=== PATIENT | male | born 1985 | race Caucasian/White ===

== ENCOUNTER 2017-10-02 14:14 | Day surgery (SDC) | payer BC ==
[~2017-10-02 14:14] MED LIST: ROCURONIUM 50 MG INJ
[2017-10-02] MEDS ORDERED: BACITRACIN/POLYMYXIN 28.35 GM OINT TOP (17:15)
[2017-10-02] MEDS ORDERED: COCAINE 4% 4 ML TOP (17:15)
[2017-10-02] MEDS ORDERED: PROPOFOL 20 ML ×2 (17:57→18:56)
[2017-10-02] MEDS ORDERED: ONDANSETRON 4 MG INJ (17:57)
[2017-10-02] MEDS ORDERED: MIDAZOLAM 1 MG/ML 2 ML INJ (17:57)
[2017-10-02] MEDS ORDERED: METOCLOPRAMIDE 10 MG INJ (17:57)
[2017-10-02] MEDS ORDERED: CLINDAMYCIN 900 MG/D5W (PMX) 50 ML IVPB (18:06)
[2017-10-02] MEDS: LIDOCAINE 1%/EPI 30 ML INJ (18:32)
[2017-10-02] MEDS ORDERED: EPINEPHrine 0.1 MG/ML SYG (18:40)
[2017-10-02] MEDS ORDERED: EPINEPHrine 1 MG INJ (18:41)
[2017-10-02] MEDS ORDERED: EPINEPHrine 100 MCG/10 ML SYG IV (18:48)
[2017-10-02] MEDS ORDERED: OXYCODONE/ACETAMINOPHEN (5/325) TAB PO ×2 (19:00)
[2017-10-02] MEDS ORDERED: HYDROmorphONE (0.2 MG/ML) 10ML SYG IV ×2 (19:00)
[2017-10-02] MEDS ORDERED: FENTAnyl 50 MCG/ML VIAL (19:33)
[2017-10-02] MEDS ORDERED: DEXAMETHASONE 4 MG/ML 1 ML INJ (19:57)
[2017-10-02] MEDS ORDERED: HYDROCODONE/APAP (5/325) TAB PO (20:30)
[2017-10-02] MEDS: ONDANSETRON 4 MG INJ IV (20:30)
[2017-10-02] MEDS: HYDROmorphONE (0.2 MG/ML) 10ML SYG IV ×2 (20:30→20:59)
== END 2017-10-02 21:14 | disposition home or self-care (01) ==
LOC: SDS 14:14
DX: J34.3 Hypertrophy of nasal turbinates (principal); J34.89 Other specified disorders of nose and nasal sinuses; R09.81 Nasal congestion; J34.2 Deviated nasal septum; M95.0 Acquired deformity of nose
CPT/HCPCS: 30140

== ENCOUNTER 2017-12-17 13:43 | Emergency (ER) | payer BC ==
[2017-12-17] MEDS ORDERED: ONDANSETRON 4 MG INJ IV (15:00)
[2017-12-17] MEDS ORDERED: FAMOTIDINE 20 MG INJ IV (15:00)
[2017-12-17 15:26] LABS: ADD MAN DIFF? NO
[2017-12-17] MEDS: LIDOCAINE/MYLANTA 40 ML BTL PO (15:26)
[2017-12-17] MEDS: HYDROCODONE/APAP (5/325) TAB PO (15:26)
[2017-12-17] MEDS: FAMOTIDINE 20 MG TAB PO (15:26)
[2017-12-17 15:32] LABS: WHITE BLOOD COUNT 9.5 10^3/ul (4.8-10.8)
[2017-12-17 15:32] LABS: BASOPHILS % 0.3 % (0.0-2.0); EOSINOPHILS # 0.1 10^3/ul (0.0-0.5); EOSINOPHILS % 0.6 % (0.0-7.0); HEMATOCRIT 44.1 % (42.0-52.0); HEMOGLOBIN 14.3 g/dl (14.0-18.0); MEAN CORPUSCULAR HGB CONC 32.4 g/dl (32.0-37.0); MEAN CORPUSCULAR VOLUME 92.6 fl (82.0-101.0); MONOCYTE # 0.5 10^3/ul (0.3-0.9); MONOCYTES % 5.4 % (0.0-11.0); NEUTROPHIL # 5.8 10^3/ul (1.6-7.5); NEUTROPHILS % 61.4 % (39.0-77.0); PLATELET COUNT 240 10^3/UL (140-415); RED BLOOD COUNT 4.76 10^6/ul (4.70-6.10); RED CELL DISTRIBUTION WIDTH 12.5 % (11.5-14.5)
[2017-12-17 15:52] LABS: ALANINE AMINOTRANSFERASE 66 IU/L (13-69); ALBUMIN 5.1 g/dl (3.3-4.9); ALBUMIN/GLOBULIN RATIO 1.59; ALKALINE PHOSPHATASE 77 IU/L (42-121); ANION GAP 17 (8-16); ASPARTATE AMINO TRANSFERASE 33 IU/L (15-46); BILIRUBIN,INDIRECT 0.7 mg/dl (0-1.1); BILIRUBIN,TOTAL 0.7 mg/dl (0.2-1.3); BLOOD UREA NITROGEN 18 mg/dl (7-20); CARBON DIOXIDE 28 mmol/L (21-31); CHLORIDE 102 mmol/L (97-110); CREATININE 1.01 mg/dl (0.61-1.24); GLUCOSE 99 mg/dl (70-220); LIPASE 184 U/L (23-300); POTASSIUM 4.7 mmol/L (3.5-5.1); SODIUM 142 mmol/L (135-144); TOTAL PROTEIN 8.3 g/dl (6.1-8.1)
[2017-12-17 16:03] LABS: TROPONIN-I < 0.010 ng/ml (0.000-0.120)
== END 2017-12-17 16:36 | disposition home or self-care (01) ==
LOC: FTE 13:43
DX: R10.13 Epigastric pain (principal); R07.9 Chest pain, unspecified
CPT/HCPCS: 36415; 80053; 83690; 84484; 85025; 99284-25

== ENCOUNTER 2019-01-11 07:40 | Emergency (ER) | payer BC | END 2019-01-11 08:52 | disposition home or self-care (01) | LOC: FTE 07:40 | DX: S89.91XA Unspecified injury of right lower leg, initial encounter (principal); X50.0XXA Overexertion from strenuous movement or load, initial encounter; Y92.9 Unspecified place or not applicable | CPT/HCPCS: 99282; Z7502 ==